=== PATIENT | female | born 1950 | race Two or more races ===

== ENCOUNTER 2024-11-22 06:00 | Outpatient (CLI) | payer OTHER ==
[~2024-11-22] VITALS: Ht 162.6 cm; Wt 83.5 kg
[2024-11-22] MEDS ORDERED: METFORMIN HCL500 M3 PO (12:08)
[2024-11-22] MEDS ORDERED: NORVASC5 MG PO (12:08)
[2024-11-22] MEDS ORDERED: ZETIA10 MG PO (12:09)
[2024-11-22] MEDS ORDERED: PRILOSEC OTC20 MG PO (12:09)
[2024-11-22] MEDS ORDERED: PAXIL20 MG PO (12:09)
[2024-11-22] MEDS ORDERED: COZAAR100 MG PO (12:10)
[2024-11-22] MEDS ORDERED: PROTONIX40 MG PO (12:10)
[2024-11-22] MEDS ORDERED: BISOPROLOL-HCT1 EAC1 (12:10)
[2024-11-22 12:14] VITALS: BP 170/90
[2024-11-22 13:51] LABS: RH NEGATIVE
== END 2024-11-22 06:01 | disposition home or self-care (01) ==
LOC: EKG 06:00 → SURH 11-28 07:00 → EDSTATUS 11-28 10:30
PROVIDERS: ATTEND Orthopaedic Surgery
DX: M17.11 Unilateral primary osteoarthritis, right knee (principal)

== ENCOUNTER 2025-04-10 10:30 | Inpatient (IN) | payer OTHER ==
[~2025-04-10] VITALS: Ht 162.6 cm; Wt 83.5 kg
[~2025-04-10 10:30] MED LIST: BISOPROLOL-HCT1 EAC1; COZAAR100 MG PO; METFORMIN HCL500 M3 PO; NORVASC5 MG PO; PAXIL20 MG PO; PRILOSEC OTC20 MG PO; PROTONIX40 MG PO; ZETIA10 MG PO
[2025-04-10] MEDS ORDERED: PEPCID AC20 MG PO (10:33)
[2025-04-10 10:35] VITALS: BP 130/79
[2025-04-10 12:01] LABS: RH NEGATIVE
[2025-04-17] MEDS ORDERED: TRANEXAMIC ACID 100MG/1ML (1000MG) AMPUL IV ONE (08:45)
[2025-04-17] MEDS ORDERED: KETOROLAC TROMETHAMINE 60 MG VIAL IM ONE (08:45)
[2025-04-17] MEDS ORDERED: VANCOMYCIN HCL 1,000 MG VIAL IV ONE (08:45)
[2025-04-17] MEDS ORDERED: LIDOCAINE HCL 1%/EPINEPHRINE 20ML VIAL IJ ONE (08:45)
[2025-04-17] MEDS ORDERED: MORPHINE SULFATE 4 MG/ML VIAL IV ONE ×3 (08:45→13:45)
[2025-04-17] MEDS ORDERED: ISOPROPYL ALCOHOL 30 ML OUNCE TOP ONE (08:45)
[2025-04-17] MEDS ORDERED: CEFAZOLIN SODIUM 1,000 MG VIAL IV ONE (08:45)
[2025-04-17] MEDS ORDERED: BUPIVACAINE HCL/PF 0.25% 30ML VIAL InF ONE (08:45)
[2025-04-17] MEDS ORDERED: OxyCODONE HCL 5 MG TABLET (ROXICODONE) PO PRN (14:30)
[2025-04-17] MEDS ORDERED: ONDANSETRON HCL 2 MG/ML VIAL IV PRN (14:30)
[2025-04-17] MEDS ORDERED: MORPHINE SULFATE 4 MG/ML CARTRIDGE IV PRN (14:30)
[2025-04-17] MEDS ORDERED: SODIUM CHLORIDE 0.45 % 1,000 ML IV SCH (14:30)
[2025-04-17] MEDS ORDERED: GABAPENTIN 300 MG CAPSULE PO SCH (17:00)
[2025-04-17 17:56] VITALS: BP 136/68; O2SAT 95
[2025-04-17] MEDS ORDERED: ACETAMINOPHEN 500 MG GEL..CAP PO SCH (18:00)
[2025-04-17] MEDS ORDERED: VANCOMYCIN HCL 1,000 MG VIAL IV SCH (21:00)
[2025-04-17] MEDS ORDERED: VANCOMYCIN HCL 1,000 MG in 0.9 % SODIUM CHLORIDE 250 ML IV SCH (21:00)
[2025-04-17] MEDS ORDERED: INSULIN LISPRO 1,000 UNIT/10 ML UNITS SUBCUTANEO PRN (22:00)
[2025-04-17] MEDS ORDERED: DEXTROSE 50 % IN WATER 0.5 G/ML VIAL IV PRN (22:00)
[2025-04-17] MEDS ORDERED: ENALAPRILAT DIHYDRATE 1.25 MG/ML VIAL IV PRN (22:00)
[2025-04-17 23:00] VITALS: BP 142/63; O2SAT 95
[2025-04-18 07:23] LABS: BASO % 0.3 % (0.1-1.2); EOS # 0.03 (0.04-0.54); EOS % 0.4 % (0.7-7.0); LYMPH # 1.63 (1.18-3.74); LYMPH % 21.7 % (19.3-53.1); MEAN PLATELET VOLUME 11.70 fl (9.4-12.4); MONO # 0.62 (0.24-0.82); MONO % 8.3 % (4.7-12.5); NEUT # 5.18 (1.56-6.13); NEUT % 69.0 % (34.0-71.1); RED CELL DISTRIBUTION WIDTH 12.7 % (11.6-14.4)
[2025-04-18 09:00] VITALS: BP 125/69; O2SAT 95
[2025-04-18] MEDS ORDERED: PAROXETINE HCL 20 MG TABLET PO SCH (09:00)
[2025-04-18] MEDS ORDERED: LOSARTAN POTASSIUM 100 MG TABLET PO SCH (09:00)
[2025-04-18] MEDS ORDERED: SENNOSIDES 1 TAB TABLET PO SCH (09:00)
[2025-04-18] MEDS ORDERED: APIXABAN 2.5 MG TABLET PO SCH (09:00)
[2025-04-18] MEDS ORDERED: AMLODIPINE BESYLATE 5 MG TABLET PO SCH (09:00)
[2025-04-18] MEDS ORDERED: PATIENTS OWN MEDICATION (MEDICAMENTO EN PISO) PO SCH (09:00)
[2025-04-18] MEDS ORDERED: SOD FERRIC GLUC COMPLX/SUCROSE 62.5 MG/5 ML AMPUL IV NR (14:30)
[2025-04-18] MEDS ORDERED: Cyanocobalamin/Mecobalamin 1 TAB.SL SL NR (14:30)
[2025-04-18 17:46] VITALS: BP 114/68; O2SAT 95
[2025-04-19 01:46] VITALS: BP 146/83; O2SAT 96
[2025-04-19 06:48] LABS: BASO % 0.3 % (0.1-1.2); EOS # 0.02 (0.04-0.54); EOS % 0.2 % (0.7-7.0); LYMPH # 1.00 (1.18-3.74); LYMPH % 10.8 % (19.3-53.1); MEAN PLATELET VOLUME 12.20 fl (9.4-12.4); MONO # 0.52 (0.24-0.82); MONO % 5.6 % (4.7-12.5); NEUT # 7.68 (1.56-6.13); NEUT % 82.7 % (34.0-71.1); RED CELL DISTRIBUTION WIDTH 13.1 % (11.6-14.4)
[2025-04-19 08:00] VITALS: BP 145/71; O2SAT 96
[2025-04-19] MEDS ORDERED: IRON FUM,PS/FOLIC ACID/VITC/B3 1 CAP CAPSULE PO SCH (09:00)
[2025-04-19] MEDS ORDERED: SOD FERRIC GLUC COMPLX/SUCROSE 62.5 MG/5 ML AMPUL IV SCH (09:00)
[2025-04-19] MEDS ORDERED: Cyanocobalamin/Mecobalamin 1 TAB.SL SL SCH (09:00)
[2025-04-19] MEDS ORDERED: PERCOCET 5-3251 EACH PO (15:14)
[2025-04-19] MEDS ORDERED: CIPRO500 MG PO (15:14)
[2025-04-19] MEDS ORDERED: ELIQUIS2.5 MG PO (15:14)
== END 2025-04-19 18:11 | DRG 470 ==
LOC: SURG 04-17 06:43 → O/R 04-17 06:43 → SURH 04-17 10:30 → SURG 04-17 14:27
PROVIDERS: ADMIT Orthopaedic Surgery; ATTEND Orthopaedic Surgery
PROC: 0MNN0ZZ Release Right Knee Bursa and Ligament, Open Approach (ICD-10-PCS; 2025-04-17)
PROC: 0QUD0KZ Supplement Right Patella with Nonautologous Tissue Substitute, Open Approach (ICD-10-PCS; 2025-04-17)
PROC: 0QUD0JZ Supplement Right Patella with Synthetic Substitute, Open Approach (ICD-10-PCS; 2025-04-17)
PROC: 0SRC0JZ Replacement of Right Knee Joint with Synthetic Substitute, Open Approach (ICD-10-PCS; principal; 2025-04-17 14:15)
DX: M17.11 Unilateral primary osteoarthritis, right knee (principal); D62 Acute posthemorrhagic anemia; I10 Essential (primary) hypertension; E66.9 Obesity, unspecified; Z96.651 Presence of right artificial knee joint; M22.11 Recurrent subluxation of patella, right knee; Z68.31 Body mass index [BMI] 31.0-31.9, adult